=== PATIENT | male | born 1970 | race Caucasian/White ===

== ENCOUNTER 2017-04-14 21:09 | Inpatient (IN) | payer BC ==
--- NOTE | 2017-04-14 21:57 | RAD ---
EXAM: Femur,Right CLINICAL INDICATION: 47-year-old male with swelling to the RIGHT anterior thigh. COMPARISON: None. TECHNIQUE: Four views of the RIGHT femur were obtained in AP, and lateral projections. FINDINGS: There is no fracture or dislocation. The joint spaces are preserved. No soft tissue abnormalities are seen. IMPRESSION: No acute radiographic abnormality. Electronically signed by: Leyda Child MD 04/14/2017 9:56 PM CDT Workstation: [id number]
[2017-04-14] MEDS ORDERED: LIDOCAINE 2% W/ EPINEPHRINE 20 ML VIAL INJ ONE (23:25)
[2017-04-14] MEDS ORDERED: IODOFORM PACKING 1/2 INCH 1 EA BTTL TOP ONE (23:25)
[2017-04-14] MEDS ORDERED: PENICILLIN BENZATHINE 1.2 MU 1.2 MU/2 ML SYG IM ONE (23:38)
[2017-04-14] MEDS ORDERED: VANCOMYCIN HCL INJ 2,000 MG in SODIUM CHLORIDE 0.9% 500ML 500 ML IVPB ONE (23:39)
--- NOTE | 2017-04-14 23:50 | ED.PDOC ---
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 He started having significant swelling in the right anterior thigh along with some erythema. No systemic symptoms. He has full range of motion and did not injure it in any other way that he knows of. He has not had recent abscesses. Severity: moderate Improving Factors: nothing Worsening Factors: nothing Associated Symptoms: denies symptoms Allergies/Adverse Reactions: Allergies NO KNOWN ALLERGY Allergy (Verified 04/14/17 23:30) Review of Systems - Review of Systems Constitutional: States: no symptoms reported EENTM: States: no symptoms reported Respiratory: States: no symptoms reported Cardiology: States: no symptoms reported Gastrointestinal/Abdominal: States: no symptoms reported Genitourinary: States: no symptoms reported Musculoskeletal: States: see HPI Skin: States: see HPI Neurological: States: no symptoms reported Endocrine: States: no symptoms reported Hematologic/Lymphatic: States: no symptoms reported All other Systems: No Change from Baseline Past Medical History (General) - Patient Medical History Hx Asthma: No Hx Hypertension: No Surgical History: other - Vaccination History Hx Tetanus, Diphtheria Vaccination: No Hx Influenza Vaccination: No Hx Pneumococcal Vaccination: No - Social History Hx Tobacco Use: No Hx Alcohol Use: Yes - occ Hx Substance Use Treatment: No Family Medical History - Family History Father Family History: Unknown Physical Exam - Physical Exam General Appearance: Alert, Comfortable, No apparent distress Eye Exam: bilateral normal Ears, Nose, Throat: normal ENT inspection, normal pharynx Neck: full range of motion, supple Respiratory: chest non-tender, lungs clear, normal breath sounds, no respiratory distress, no accessory muscle use Cardiovascular/Chest: normal peripheral pulses, regular rate, rhythm, no edema Peripheral Pulses: radial,right: 2+, radial,left: 2+, dorsalis pedis,right: 2+, dorsalis pedis,left: 2+, posterior tibialis,right: 2+, posterior tibialis,left: 2+ Gastrointestinal/Abdominal: soft Rectal Exam: deferred Back Exam: no CVA tenderness, no vertebral tenderness Extremity: normal range of motion, no pedal edema, normal capillary refill, other - welling to the anterior right thigh Neurologic: 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 abscess was localized with ultrasound and after risks and benefits were explained the area was cleaned sterilely with alcohol followed by localized injection of 2% lidocaine with epinephrine 3 cc. 15 blade scalpel was used to make a 2 cm incision through the skin. Incision was carried down bluntly primarily with curved hemostats to the level of the abscess cavity. Abscess had previously been localized with an 18-gauge needle. Wound culture was obtained. Wound cavity was explored partially with a cotton-tip swab. Iodoform gauze was placed in the drainage tract. It appears that the abscess is draining from approximately a 10" x 10" area and does appear to be draining fairly well at this time. Approximately 70-80 cc of pus was obtained. Patient tolerated procedure well. He is receiving a dose of Bicillin LA and a dose of IV vancomycin here tonight. He is going to be placed in as an inpatient for IV antibiotics and for evaluation by the general surgeon in the morning. He may need a further drainage site for ideal drainage. No evidence of sepsis at this time. - Results/Orders Results/Orders: Laboratory Tests 04/14/17 04/14/17 04/14/17 22:00 22:00 22:00 WBC 20.3 H* RBC 5.52 Hgb 15.9 Hct 47.8 MCV 86.6 MCH 28.8 MCHC 33.2 RDW 14.6 H Plt Count 235 MPV 8.2 Absolute Neuts (auto) Not Reportable Absolute Lymphs (auto) Not Reportable Absolute Monos (auto) Not Reportable Absolute Eos (auto) Not Reportable Neutrophils % Not Reportable Neutrophils % (Manual) 86.0 Lymphocytes % Not Reportable Lymphocytes % (Manual) 7.0 Monocytes % Not Reportable Monocytes % (Manual) 7.0 Eosinophils % Not Reportable Basophils % Not Reportable Platelet Estimate Normal Normal RBC Morphology Normal rbc morph D-Dimer, Quantitative 391 H* Sodium 136 Potassium 3.5 L Chloride 104 Carbon Dioxide 27 Anion Gap 8.5 L BUN 15 Creatinine 1.14 BUN/Creatinine Ratio 13.2 Random Glucose 151 H Serum Osmolality 275.7 Calcium 8.6 Total Bilirubin 0.5 AST 24 ALT 24 Alkaline Phosphatase 52 Creatine Kinase 397 H* CK-MB (CK-2) 3.0 CK-MB (CK-2) % Not Reportable Troponin I < 0.02 Serum Total Protein 7.1 Albumin 3.7 Globulin 3.4 Albumin/Globulin Ratio 1.1 ound culture and blood culture being performed. Departure - Departure Clinical Impression: Abscess of leg Disposition: Admit Patient Decision To Admit - Decistion To Admit Decision to Admit Reason: Medical Nature Decision to Admit Date: 04/14/17 Decision to Admit Time: 23:56
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
[2017-04-15] MEDS ORDERED: VANCOMYCIN HCL INJ 1,000 MG VIAL IVPB ONE ×3 (00:42→19:55)
[2017-04-15] MEDS ORDERED: SODIUM CHLORIDE 0.9% 500ML 500 ML ONE (00:43)
[2017-04-15] MEDS ORDERED: PENICILLIN BENZATHINE 1.2 MU 1.2 MU/2 ML SYG IM ONE (00:43)
[2017-04-15] MEDS ORDERED: SODIUM CHLORIDE 0.9% (FLUSH) 10 ML SYG IV PRN (00:44)
[2017-04-15] MEDS ORDERED: HYDROcodone 5MG/APAP 325MG 1 EA TAB PO PRN (00:44)
--- NOTE | 2017-04-15 00:59 | PCM.CORE ---
Physician DVT/VTE - Nurse DVT Assessment & Total Each Risk Factor Represents 3 Points: Medical PT with Hx of GA, CHF, Severe infection/sepsis Each Risk Factor Represents 1 Point: Age 41-60 DVT Assessment Score: 4 - 3-4 High Risk Treatments: Early Ambulation *, Sequential Compression Device Pharmacological: Enoxaparin 40 mg SQ Daily
[2017-04-15] MEDS ORDERED: IV SET AND CAP CHANGE INJ INJ SCH (01:00)
[2017-04-15] MEDS: KCL 20MEQ/0.45% NS 1,000 ML IVS PRN ×2 (03:44→13:54)
[2017-04-15] MEDS ORDERED: SODIUM CHLORIDE 0.9% 100ML 100 ML IVPB ONE ×5 (04:57→19:57)
[2017-04-15] MEDS ORDERED: PIPERACILLIN/TAZOBACTAM 3.375 GM VIAL IVPB ONE ×5 (04:57→19:57)
[2017-04-15] MEDS ORDERED: PIPERACILLIN/TAZOBACTAM 3.375 GM in SODIUM CHLORIDE 0.9% 100ML 100 ML IVPB SCH (06:00)
[2017-04-15] MEDS ORDERED: VANCOMYCIN PER PHARMACY INJ SCH (09:00)
[2017-04-15] MEDS ORDERED: ENOXAPARIN SODIUM 40 MG/0.4 ML SYG SUBCU SCH (09:00)
[2017-04-15] MEDS: PIPERACILLIN/TAZOBACTAM 3.375 GM in SODIUM CHLORIDE 0.9% 100ML 100 ML IVPB SCH ×3 (11:19→22:35)
[2017-04-15] MEDS ORDERED: SODIUM CHLORIDE 0.9% 250ML 250 ML ONE ×2 (13:26→19:54)
[2017-04-15] MEDS ORDERED: VANCOMYCIN HCL INJ 500 MG VIAL ONE ×2 (13:26→19:54)
[2017-04-15] MEDS: VANCOMYCIN HCL INJ 1,000 MG, VANCOMYCIN HCL INJ 500 MG in SODIUM CHLORIDE 0.9% 250ML 25... IVPB SCH ×2 (13:53→23:49)
[2017-04-15] MEDS: ACETAMINOPHEN 325 MG TAB PO PRN (20:50)
[2017-04-16] MEDS: KCL 20MEQ/0.45% NS 1,000 ML IVS PRN (02:52)
[2017-04-16] MEDS: PIPERACILLIN/TAZOBACTAM 3.375 GM in SODIUM CHLORIDE 0.9% 100ML 100 ML IVPB SCH ×2 (05:17→10:57)
[2017-04-16] MEDS ORDERED: VANCOMYCIN HCL INJ 500 MG VIAL ONE (07:58)
[2017-04-16] MEDS ORDERED: SODIUM CHLORIDE 0.9% 100ML 100 ML IVPB ONE (07:59)
[2017-04-16] MEDS ORDERED: SODIUM CHLORIDE 0.9% 250ML 250 ML ONE (07:59)
[2017-04-16] MEDS ORDERED: PIPERACILLIN/TAZOBACTAM 3.375 GM VIAL IVPB ONE (07:59)
[2017-04-16] MEDS ORDERED: VANCOMYCIN HCL INJ 1,000 MG VIAL IVPB ONE (07:59)
--- NOTE | 2017-04-16 10:26 | US ---
EXAM DESCRIPTION: Soft Tissue,Extremity CLINICAL HISTORY: right tigh- deep tissue abcess COMPARISON: None. FINDINGS: Real-time sonographic images of the soft tissue in the right thigh are obtained in the area of interest. There is a 5.2 x 3.8 x 0.5 cm area of decreased echogenicity in the deep subcutaneous soft tissue that appears to be at least 1.5 cm below the skin surface. There are some areas of posterior acoustic shadowing. IMPRESSION: There is a 5.2 x 3.8 x 0.5 cm probable fluid collection in the subcutaneous soft tissue labeled mid right thigh. This could represent postop hematoma or seroma. Abscess is also a consideration. Sterility of the fluid cannot be determined on ultrasound imaging. There are some areas of posterior acoustic shadowing that could represent dense tissue versus possible foreign body. Correlate with physical exam findings and patient history. Electronically signed by: Mo Winters MD 04/16/2017 10:25 AM CDT
[2017-04-16] MEDS ORDERED: VANCOMYCIN HCL INJ 1,000 MG, VANCOMYCIN HCL INJ 250 MG in SODIUM CHLORIDE 0.9% 250ML 25... IVPB SCH (12:00)
[2017-04-16] MEDS ORDERED: SODIUM CHLORIDE 0.9% (FLUSH) 10 ML SYG IV ONE (12:21)
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
--- NOTE | 2017-04-16 14:44 | PN ---
SUPERVISING PHYSICIAN: Pal Mazariegos MD DATE: 04/16/17 SUBJECTIVE: The patient is laying in bed and resting. He appears to be comfortable and in no acute distress. His right thigh is much less swollen today. He did have some serosanguineous drainage yesterday afternoon and some bleeding which was controlled with direct pressure. He remains afebrile. OBJECTIVE: VITAL SIGNS: Temperature 98.6. Pulse 73. Blood pressure 132/82. Saturation 97% on room air. Respirations 16. I&Os show positive balance of 1790 with 3915 in, 2125 out. Weight 114.0 kg. CHEST: Lungs clear to auscultation. HEART: Regular rate and rhythm. ABDOMEN: Soft, nontender. Positive bowel sounds. EXTREMITIES: No cyanosis, clubbing or edema distally. The right anterior thigh remains somewhat swollen, but less compared to yesterday. It remains erythematous with wound I&D site with iodoform gauze in place with no palpable areas of consolidation. NEUROLOGIC: Alert and oriented times three. LABORATORY: White count still shows a leukocytosis, but improved down to 14, 000. Hemoglobin 15.6, hematocrit 47.0, platelet count 247,000, differential shows a left shift. Chemistries show normal electrolytes today with potassium 3.7, BUN 11, creatinine 11.0. CPK is down to 146. MICROBIOLOGY: Blood cultures remains negative at 24 hours. Wound culture shows no growth at 48 hours. RADIOLOGY: Soft tissue ultrasound on the area is pending. ASSESSMENT: 1. Deep tissue abscess to the right anterior thigh secondary to self-induced puncture wound from injection of anabolic steroids with a previous incision and drainage performed in the Emergency Room with culture of wound drainage currently showing no growth with continued no obvious signs of compartment syndrome. 2. Electrolyte imbalance, mild hypokalemia, resolved with IV fluids. 3. Mildly elevated CPK secondary to deep tissue abscess with leg swelling, now normalized after IV fluids and initiation of antibiotics. PLAN: We will continue with antibiotic therapy with Zosyn and vancomycin per pharmacy protocol today. We will awaiting Dr. Sauceda's consultation and anticipate hopefully being able to discharge tomorrow. I have ordered an ultrasound of the area to better assess for fluid collection. I plan to repeat a CBC in the morning. As he normalizes his electrolytes and has adequate p.o. intake, we will take his fluids to saline lock. Hopefully, again, anticipate discharge tomorrow. Until then, we will continue to monitor the patient closely and treat appropriately. [facility][id number] [facility]
[2017-04-16] MEDS: SULFA/TRIMETH 800/160 (DS) TAB 1 EA TAB PO SCH (17:04)
[2017-04-16] MEDS: ACETAMINOPHEN 325 MG TAB PO PRN (20:14)
[2017-04-16] MEDS: SODIUM CHLORIDE 0.9% (FLUSH) 10 ML SYG IV SCH (20:30)
[2017-04-16] MEDS: BIFIDOBACTERIUM INFANTIS 4 MG CAP PO SCH (21:30)
[2017-04-16] MEDS: DOXYCYCLINE HYCLATE CAP 100 MG CAP PO SCH (21:30)
[2017-04-17] MEDS: SULFA/TRIMETH 800/160 (DS) TAB 1 EA TAB PO SCH (04:00)
[2017-04-17] MEDS: BIFIDOBACTERIUM INFANTIS 4 MG CAP PO SCH (08:58)
[2017-04-17] MEDS: DOXYCYCLINE HYCLATE CAP 100 MG CAP PO SCH (08:58)
[2017-04-17] MEDS: SODIUM CHLORIDE 0.9% (FLUSH) 10 ML SYG IV SCH (08:59)
[2017-04-17 10:20] VITALS: O2SAT 98
[2017-04-17 11:01] VITALS: BP 126/88; TEMP 98.1
--- NOTE | 2017-04-17 11:12 | DS ---
SUPERVISING PHYSICIAN: Pal Mazariegos MD DISCHARGE DIAGNOSIS: 1. Deep tissue abscess to the right anterior thigh secondary to self-induced puncture wound from injection of anabolic steroids with a previous incision and drainage performed in the Emergency Room with culture of wound drainage currently showing no growth with continued no obvious signs of compartment syndrome. 2. Electrolyte imbalance, mild hypokalemia, resolved. 3. Mildly elevated CPK secondary to deep tissue abscess with leg swelling, now normalized after IV fluids and initiation of antibiotics. HISTORY OF PRESENT ILLNESS: This is a 47 year-old male patient who has been giving himself steroid injections in his right anterior thigh for the last 3 to 4 weeks. He gave himself an injection with a 1 inch needle, 20 gauge, with anabolic steroids this past Sunday and noted that he started having some leg swelling on Sunday. He denied any fever or chills or any traumatic injury. The pain continued to worsen and he went to the Emergency Room. He was found to have an abscess to the anterior portion of the right thigh and Dr. Claus Gonsalves, Emergency Room physician, did an incision and drainage. A wound culture was obtained. He apparently explored the cavity partially and then drained approximately 70 to 80 mL of pus from the area. The wound was then packed with iodoform dressing. He was given a single dose of Bicillin and started on vancomycin in the Emergency Department. Blood cultures were collected. He was admitted to the Medical/Surgical floor for continuation of treatment. Initially, the patient had no signs of sepsis. His initial white count was elevated at 20,300 with a left shift. He had no fever on admission. HOSPITAL COURSE: He was continued on vancomycin as well as Zosyn. Yesterday, his IV was accidentally discontinued and the patient was changed to doxycycline and Bactrim orally. His wound culture showed no growth after 72 hours. His preliminary blood cultures showed no growth after 48 hours. His white count stabilized down to 10.7 and his neutrophils are now 76.6. His creatinine kinase also normalized to 146 and his electrolytes normalized. Dr. Sauceda was consulted during this time and he continued packing the wound. The patient has been pain free for 24 hours as well as the swelling to that leg is reduced and he has no signs or symptoms of compartment syndrome. At this point, he can be discharged home. DISCHARGE PLAN: The patient will be discharged home in stable condition. He is to resume his previous activity and diet. He will followup with Dr. Sauceda as needed, but otherwise he is to continue his wound care. He will have followup with EPIFANIO Felder, on 04/19/17 at 10 AM. He has been cautioned about anabolic steroids. I have continued him on Bactrim and doxycycline for 5 additional days. He is to return to the hospital or call [facility] for any further problems or complications. DISCHARGE MEDICATIONS: 1. Align. 2. Doxycycline. 3. Bactrim DS. Dr. Mazariegos is the collaborating physician and available for consultation. #[id number] [facility]
== END 2017-04-17 11:40 | disposition home or self-care (01) | DRG 581 ==
LOC: ER 21:09 → MS 04-15 00:33 → OBSVTOIN 04-15 00:33
PROVIDERS: ADMIT Nurse Practitioner Family; ATTEND Nurse Practitioner Acute Care
PROC: 0J9L0ZZ Drainage of Right Upper Leg Subcutaneous Tissue and Fascia, Open Approach (ICD-10-PCS; principal; 2017-04-14)
DX: L02.415 Cutaneous abscess of right lower limb (principal); E87.6 Hypokalemia; R74.8 Abnormal levels of other serum enzymes; S71.131A Puncture wound without foreign body, right thigh, initial encounter; X78.8XXA Intentional self-harm by other sharp object, initial encounter; Y92.9 Unspecified place or not applicable

== ENCOUNTER 2018-12-15 10:37 | Emergency (ER) | payer SELFPAY ==
[2018-12-15 11:26] VITALS: O2SAT 96
--- NOTE | 2018-12-15 11:31 | ED.PDOC ---
History of Present Illness - General Chief Complaint: Skin/Abrasion/Tear Stated Complaint: swellin/redness hip right Time Seen by Provider: 12/15/18 11:10 Source: patient Exam Limitations: no limitations - History of Present Illness Initial Comments: Sergio Kingston 48 y/o male stated self injected himself on his right hip with fat burning parenteral medication bought it online and yesterday while riding his bike noted redness /swelling but no itching right hip.Denies fever ,chills SOB.Had just started using the medication for weight loss.Stated the synge needle intact after injection Timing/Duration: other - 3 days ago Severity: moderate Location: extremities - right hip Improving Factors: nothing Worsening Factors: nothing Associated Symptoms: other - see hpi Allergies/Adverse Reactions: Allergies NO KNOWN ALLERGY Allergy (Verified 12/15/18 11:26) Home Medications: Ambulatory Orders Amoxicillin [Amoxil] 1,000 mg PO BID 10 Days #40 cap 12/15/18 Methylprednisolone [Medrol Dose Antonio] 4 mg PO DAILY 6 Days #21 tab 12/15/18 Review of Systems - Review of Systems Skin: States: see HPI All other Systems: Reviewed and Negative, No Change from Baseline Past Medical History (General) - Patient Medical History Hx Seizures: No Hx Stroke: No Hx Asthma: No Hx of COPD: No Hx Congestive Heart Failure: No Hx Pacemaker: No Hx Hypertension: No Hx Diabetes: No Hx MRSA: No - This is first occurence Surgical History: other - face - Vaccination History Hx Tetanus, Diphtheria Vaccination: No Hx Influenza Vaccination: No Hx Pneumococcal Vaccination: No - Social History Hx Tobacco Use: No Hx Alcohol Use: No Hx Substance Use: No Hx Substance Use Treatment: No Hx Physical Abuse: No Hx Emotional Abuse: No Family Medical History - Family History Father Family History: No Known Living Status: Still Living Hx Family Asthma: No Hx Family Congestive Heart Failure: No Hx Family Hypertension: No Hx Family Stroke: No Hx Cardiac Disease: Yes - mom Hx Family Diabetes: No Hx Family Cancer: No Mother Family History: No Known Living Status: Still Living Hx Family Asthma: No Hx Family Congestive Heart Failure: No Hx Family Hypertension: No Hx Family Stroke: No Hx Cardiac Disease: Yes Hx Family Diabetes: No Hx Family Cancer: No Physical Exam - Physical Exam General Appearance: Alert, Comfortable, No apparent distress Eyes, Ears, Nose, Throat Exam: normal ENT inspection, pharynx normal Neck: non-tender, full range of motion, supple, normal inspection Cardiovascular/Chest: normal peripheral pulses, regular rate, rhythm, no murmur Respiratory: chest non-tender, lungs clear, normal breath sounds Gastrointestinal/Abdominal: normal bowel sounds, non tender, soft, no organomegaly Extremity: no pedal edema, no calf tenderness Neurologic: alert, oriented x 3 Skin Exam: warm/dry, normal color Skin Problem Location: lower extremities - right hip Skin Character: other Lymphatic: no adenopathy Progress - Progress Progress: 12/15/18 11:33 Vital Signs 12/15/18 10:40 Temperature 97 F L Pulse Rate [R 87 finger] Respiratory 18 Rate Blood Pressure 144/92 [L arm] O2 Sat by Pulse 96 Oximetry Departure - Departure Clinical Impression: Injection site irritation Qualifiers: Encounter type: initial encounter Qualified Code(s): T80.89XA - Other complications following infusion, transfusion and therapeutic injection, initial encounter Time of Disposition: 11:35 Disposition: Discharge to Home or Self Care Condition: Fair Departure Forms: ED Discharge - Pt. Copy, Patient Portal Self Enrollment Referrals: Any Blanca NP [Primary Care Provider] - 1-2 Weeks Prescriptions: Amoxicillin [Amoxil] 1,000 mg PO BID 10 Days #40 cap Methylprednisolone [Medrol Dose Antonio] 4 mg PO DAILY 6 Days #21 tab Home Medications: Ambulatory Orders Amoxicillin [Amoxil] 1,000 mg PO BID 10 Days #40 cap 12/15/18 Methylprednisolone [Medrol Dose Antonio] 4 mg PO DAILY 6 Days #21 tab 12/15/18 Additional Instructions: Return to ER as needed;NEED TO STOP USING THE FAT BURNING INJECTABLE
[2018-12-15] MEDS ORDERED: TETANUS,DIPHTHERIA,PERTUSSIS 1 EA SYG IM ONE (11:34)
[2018-12-15 12:18] VITALS: BP 143/89; TEMP 97.7
== END 2018-12-15 12:00 | disposition home or self-care (01) ==
LOC: ER 10:37
DX: T80.89XA Other complications following infusion, transfusion and therapeutic injection, initial encounter (principal); Z23 Encounter for immunization